=== PATIENT | female | born 1970 | race Caucasian/White ===

== ENCOUNTER → 2021-03-24 | Outpatient (CLI) | payer OTHER ==
--- NOTE | 2021-03-24 17:52 | Diagnostic Imaging Report ---
EXAMINATION: Magnetic resonance imaging of the right knee without intravenous contrast DATE: March 24, 2021. COMPARISON: None. INDICATION: 50-year-old female, right knee pain and instability. TECHNIQUE: Multiplanar, multisequence non contrast enhanced MR imaging was accomplished. FINDINGS: MENISCI: The medial meniscus is intact. The lateral meniscus is intact. LIGAMENTS AND TENDONS: The anterior and posterior cruciate ligaments are intact. The medial collateral ligament is intact. The iliotibial band, mid third lateral capsular ligament, fibular collateral ligament, biceps femoris tendon and conjoined tendon are intact. The quadriceps tendon and patella ligament are intact. JOINT: The articular cartilage surfaces are intact. There is no knee joint effusion, prominent synovitis, or intra-articular body. BONE: There is unremarkable bone marrow signal. Specifically, negative for fracture, osteomyelitis, osteonecrosis, or marrow replacing process. BURSAE AND SOFT TISSUES: There is minimal fluid in the popliteal fossa without sizable Leon's cyst. There is nonspecific prepatellar subcutaneous edema. IMPRESSION: 1. Intact menisci and cruciate ligaments. Additional ligaments and tendons are intact. 2. No acute fracture, bone contusion or other notable bone marrow signal abnormality. 3. Intact articular cartilage. No knee joint effusion. 4. Minimal fluid in the popliteal fossa without sizable Leon's cyst. Dictated by: Dictated on workstation # [id number]
== END ==
LOC: RAD 15:51
PROVIDERS: ATTEND Allergy & Immunology
DX: M25.361 Other instability, right knee (principal)
CPT/HCPCS: 73721

== ENCOUNTER → 2022-10-04 | Outpatient (CLI) | payer BC, OTHER ==
--- NOTE | 2022-10-04 16:41 | Diagnostic Imaging Report ---
INDICATION: Abdominal pain. TECHNIQUE: An abdominal film was obtained at 3:30 PM. FINDINGS: The abdominal bowel gas pattern is unremarkable. There is prominent stool throughout the colon. There are phleboliths in the pelvis. There is no overt bony abnormality. IMPRESSION: Prominent stool throughout the colon with no overt obstruction or ileus. There are phleboliths in the pelvis. Dictated by: Dictated on workstation # [id number]
== END ==
LOC: RAD FS 15:18
PROVIDERS: ATTEND Nurse Practitioner Family
DX: I87.8 Other specified disorders of veins (principal)
CPT/HCPCS: 74019

== ENCOUNTER 2023-06-21 05:59 | Outpatient (CLI) | payer BC, OTHER ==
[~2023-06-21] VITALS: Ht 167.4 cm; Wt 89.4 kg
[2023-06-22] MEDS ORDERED: SEMA1.7P SQ (11:43)
[2023-06-22] MEDS ORDERED: BUPR-168 PO (11:43)
[2023-06-22] MEDS ORDERED: CITA20TA9 PO (11:43)
[2023-06-22] MEDS ORDERED: ALPR0.254 PO (11:43)
[2023-06-22] MEDS ORDERED: HYDR25TA4 PO (11:43)
[2023-06-22] MEDS ORDERED: MAGN400T39 PO (11:43)
[2023-06-22] MEDS ORDERED: LISI20TA26 PO (11:43)
[2023-06-22] MEDS ORDERED: LOVA10TA PO (11:43)
== END 2023-06-22 11:48 | disposition home or self-care (01) ==
LOC: PREOP 05:59
PROVIDERS: ATTEND Surgery
DX: Z01.818 Encounter for other preprocedural examination (principal)